=== PATIENT | female | born 1950 | race Caucasian/White ===

== ENCOUNTER → 2021-11-26 | Outpatient (CLI) | payer OTHER | LOC: COVID19 15:29 | PROVIDERS: ATTEND Internal Medicine | DX: U07.1 COVID-19 (principal) ==

== ENCOUNTER → 2025-06-09 | Outpatient (CLI) | payer MEDICARE | END | disposition home or self-care (01) | LOC: MRI 14:35 | PROVIDERS: ATTEND Ophthalmology Pediatric Ophthalmology and Strabismus Specialist | DX: R51.9 Headache, unspecified (principal); H53.2 Diplopia ==